=== PATIENT | male | born 1980 | race Caucasian/White ===

== ENCOUNTER 2017-12-15 20:44 | Emergency (ER) | payer OTHER ==
[~2017-12-15] VITALS: Ht 167.6 cm; Wt 113.4 kg
[~2017-12-15 20:44] MED LIST: AZIT250 PO; ERY PO; NAPR500 PO; Nasonex17 GM; OXYACE5T PO; PSEU120ER PO; Percocet 5-3251 EACH PO
[2017-12-15] MEDS ORDERED: CLINDAMYCI75 MG/5 M1 PO (21:41)
== END 2017-12-15 22:16 | disposition home or self-care (01) ==
LOC: ER 20:44
DX: J02.0 Streptococcal pharyngitis (principal); Z88.0 Allergy status to penicillin; Z88.8 Allergy status to other drugs, medicaments and biological substances; F17.200 Nicotine dependence, unspecified, uncomplicated
CPT/HCPCS: 87430; 99283; J1100

== ENCOUNTER 2018-01-15 15:54 | Emergency (ER) | payer OTHER ==
[~2018-01-15] VITALS: Ht 167.6 cm; Wt 127.0 kg
[~2018-01-15 15:54] MED LIST changes: +CLINDAMYCI75 MG/5 M1 PO
[2018-01-15] MEDS ORDERED: Polytrim Eye Dr10 ML RIGHTEYE (16:15)
== END 2018-01-15 16:20 | disposition home or self-care (01) ==
LOC: ER 15:54
DX: H10.9 Unspecified conjunctivitis (principal); Z88.0 Allergy status to penicillin; Z88.1 Allergy status to other antibiotic agents
CPT/HCPCS: 99282

== ENCOUNTER 2018-01-17 18:09 | Emergency (ER) | payer OTHER ==
[~2018-01-17] VITALS: Ht 167.6 cm; Wt 113.4 kg
[~2018-01-17 18:09] MED LIST changes: +Polytrim Eye Dr10 ML RIGHTEYE
== END 2018-01-17 20:09 | disposition home or self-care (01) ==
LOC: ER 18:09
DX: H10.9 Unspecified conjunctivitis (principal); Z88.0 Allergy status to penicillin; Z88.8 Allergy status to other drugs, medicaments and biological substances; Z79.899 Other long term (current) drug therapy
CPT/HCPCS: 99282

== ENCOUNTER 2018-02-20 19:09 | Emergency (ER) | payer OTHER ==
[~2018-02-20] VITALS: Ht 167.6 cm; Wt 113.4 kg
[2018-02-20] MEDS ORDERED: Zithromax250 MG PO (20:45)
== END 2018-02-20 20:52 | disposition home or self-care (01) ==
LOC: ER 19:09
DX: J18.9 Pneumonia, unspecified organism (principal); Z88.0 Allergy status to penicillin; Z88.8 Allergy status to other drugs, medicaments and biological substances; Z87.891 Personal history of nicotine dependence
CPT/HCPCS: 71046; 99283

== ENCOUNTER 2020-01-17 19:26 | Emergency (ER) | payer SELFPAY ==
[~2020-01-17] VITALS: Ht 167.6 cm; Wt 115.7 kg
[~2020-01-17 19:26] MED LIST changes: +Zithromax250 MG PO
== END 2020-01-17 22:29 | disposition home or self-care (01) ==
LOC: ER 19:26
DX: J02.9 Acute pharyngitis, unspecified (principal); H69.93 Unspecified Eustachian tube disorder, bilateral; Z88.0 Allergy status to penicillin; Z87.891 Personal history of nicotine dependence
CPT/HCPCS: 87081; 87430; 99283